=== PATIENT | female | born 1975 | race Caucasian/White ===

== ENCOUNTER 2021-08-23 16:30 | Emergency (ER) | payer SELFPAY ==
[~2021-08-23] VITALS: Ht 165.1 cm; Wt 70.0 kg
[2021-08-23] MEDS ORDERED: AMOX-424 MT (19:59)
[2021-08-23] MEDS ORDERED: AZITHROMYCIN 500 MG TABLET PO ONE (20:00)
[2021-08-23 21:14] LABS: CLARITY URINE CLEAR (CLEAR); COLOR URINE YELLOW (YELLOW); KETONES URINE 1+ (NEGATIVE); LEUKOCYTE ESTERASE URINE TRACE (NEGATIVE); NITRITE URINE NEGATIVE (NEGATIVE); OCCULT BLOOD URINE NEGATIVE (NEGATIVE); PH URINE 5.5 (4.5-8.0); PROTEIN URINE NEGATIVE (NEGATIVE); SPECIFIC GRAVITY URINE 1.022 (1.005-1.030); UROBILINOGEN URINE 0.2 E.U./dL (0.2-1.0)
[2021-08-23 22:19] VITALS: BP 127/80
[2021-08-26 04:07] LABS: NEISSERIA GONORRHOEAE NAA Positive (Negative)
== END 2021-08-23 22:20 | disposition home or self-care (01) ==
LOC: ER 16:30
DX: N39.0 Urinary tract infection, site not specified (principal); Z20.2 Contact with and (suspected) exposure to infections with a predominantly sexual mode of transmission
CPT/HCPCS: 81003; 86694; 87491; 87591; 99283